=== PATIENT | female | born 1955 | race African-American/Black ===

== ENCOUNTER 2024-03-11 19:09 | Emergency (ER) | payer OTHER, MEDICAID ==
[~2024-03-11] VITALS: Ht 157.5 cm; Wt 95.5 kg
[2024-03-11 19:14] VITALS: BP 147/82; PULSE 83; TEMP 99.3
[2024-03-11] MEDS ORDERED: droPERidol 2.5 MG/ML 2 ML VIAL IM ONE (20:00)
== END 2024-03-11 21:47 | disposition home or self-care (01) ==
LOC: COL.ER 19:09
DX: R51.9 Headache, unspecified (principal); Z86.69 Personal history of other diseases of the nervous system and sense organs
CPT/HCPCS: J1790